=== PATIENT | male | born 2000 | race Caucasian/White ===

== ENCOUNTER 2021-09-09 11:02 | Emergency (ER) | payer OTHER, SELFPAY ==
[2021-09-09 11:15] VITALS: BP 114/79; PULSE 79; RESP 18; TEMP 37; O2SAT 99
--- NOTE | 2021-09-09 11:27 | ED.WOUNDLAC ---
HPI - Wound/Laceration General Chief Complaint: Wound/Laceration Stated Complaint: Staple Removal Source: patient and RN notes reviewed Mode of arrival: ambulatory Limitations: no limitations History of Present Illness HPI narrative: 21-year-old male presents with concern for staple removal. Reports a scalp injury for which she has stapled around August 27. Reports he was given a tool for staple removal and attempted staple removal on his own. Reports he had difficulty removing 1 staple. He presents for the second and third cassius to be removed. He denies any drainage, pain, swelling, redness, tenderness. Location: scalp Related Data Home Medications Medication Instructions Recorded Confirmed No Home Medications 09/09/21 09/09/21 Allergies Allergy/AdvReac Type Severity Reaction Status Date / Time No Known Allergies Allergy Verified 09/09/21 11:26 Review of Systems Review of Systems: CONSTITUTIONAL: Denies malaise, chills, sweats, or fever. SKIN: Reports healing laceration to the scalp with 2 intact cassius MUSCULOSKELETAL: Denies muscle skeletal pain NEUROLOGIC: Denies numbness, weakness All systems reviewed & are unremarkable except as noted in HPI and below PMFSH Comments At time of signature, agree with nursing past medical, surgical, social and family history. There is no relevant family history pertinent to the presenting complaint Exam Narrative: GENERAL: Well-appearing, well-nourished, and in no acute distress. HEAD: Normocephalic EYES: PERRLA, sclera clear ENT: Mucous membranes moist. NECK: Supple. No lymphadenopathy CHEST: Clear to auscultation. No respiratory distress. HEART: Regular rate and rhythm. SKIN: Warm, dry. Scabbed, healing laceration noted to the right scalp with 2 intact cassius NEURO: Alert and oriented x3. PSYCH: Normal mood and affect Course Course Emergency Course: Patient is aware of diagnosis, understands and agrees to treatment plan. Anticipatory guidance given. Patient agrees to follow-up as directed and is aware of reasons to seek care at the emergency department. Portions of this record may have been created with voice recognition software Level of Care: Express Care Visit Vital Signs Vital signs: Vital Signs Temperature 98.6 F 09/09/21 11:15 Pulse Rate 79 09/09/21 11:15 Respiratory Rate 18 09/09/21 11:15 Blood Pressure 114/79 09/09/21 11:15 Pulse Oximetry 99 09/09/21 11:15 Temperature 98.6 F 09/09/21 11:15 Pulse Rate 79 09/09/21 11:15 Respiratory Rate 18 09/09/21 11:15 Blood Pressure 114/79 09/09/21 11:15 Pulse Oximetry 99 09/09/21 11:15 Reviewed. MDM - Wound/Laceration MDM Narrative Medical decision making narrative: Verbal consent was obtained. Wound well approximated, no erythema, induration, or discharge noted. 2 cassius completely removed in a sterile fashion. Patient tolerated procedure well, no complications. Patient advised to look for and return for any signs of infection such as redness, swelling, discharge, or worsening pain. Differential Diagnosis Differential diagnosis: Likely laceration, abrasion and avulsion of skin Critical Care Time Critical Care Time Critical Care Time: No Discharge Plan Discharge Clinical Impression: Encounter for staple removal Patient Disposition: Home, Self-Care Condition: Stable Instructions: Stitches Removal (ED) Additional Instructions: AFTER the cassius are removed: Clean your wound as directed. Carefully wash your wound with soap and water. Pat the area dry with a clean towel. Protect your wound. Your wound can swell, bleed, or split open if it is stretched or bumped. You may need to wear a bandage that supports your wound until it is completely healed. Prescriptions: No Action No Home Medications RF: 0 Follow-up/Referrals: PHYSICIAN,FLOORHAND [Primary Care Provider] - Time of Disposition: 11:28
== END 2021-09-09 11:30 | disposition home or self-care (01) ==
PROVIDERS: Emergency Provider Nurse Practitioner
DX: S01.01XD Laceration without foreign body of scalp, subsequent encounter (principal); X58.XXXD Exposure to other specified factors, subsequent encounter
CPT/HCPCS: 99211; G0463